=== PATIENT | female | born 1945 | race African-American/Black ===

== ENCOUNTER 2016-11-17 18:11 | Inpatient (IN) | payer MEDICARE ==
[~2016-11-17] VITALS: Ht 172.7 cm; Wt 100.2 kg
[2016-11-17] MEDS ORDERED: ONDANSETRON HCL 4MG/2ML VIAL IV STA (19:07)
[2016-11-17] MEDS ORDERED: MORPHINE SULFATE 4 MG/ML CPJ (NOT FOR IM USE) IV STA (19:07)
[2016-11-17 19:51] LABS: BASOPHILS % 0.8 % (0.0-2.0); CHLORIDE 107 mEq/L (98-107); EOSINOPHILS % 5.2 % (0.0-5.0); HEMATOCRIT. 34.1 % (36.0-48.0); HEMOGLOBIN. 11.2 g/dL (12.0-16.0); LYMPHOCYTES % 26.3 % (20.0-50.0); MEAN CORPUSCULAR HEMOGLOBIN 27.5 pg (28.0-32.0); MEAN CORPUSCULAR VOLUME 83.4 fL (81.0-99.0); MEAN PLATELET VOLUME 9.7 fl (7.4-10.4); MONOCYTES % 9.4 % (2.0-8.0); NEUTROPHILS % 58.3 % (40.0-76.0); PLATELET 100 x1000/uL (130-400); RED BLOOD CELL COUNT 4.08 mill/uL (4.2-5.4); RED CELL DISTRIBUTION WIDTH 14.7 % (11.6-14.6)
[2016-11-17 19:54] LABS: PARTIAL THROMBOPLASTIN TIME 26.6 sec (23.4-31.0); PROTHROMBIN TIME 10.5 sec (9.4-11.6)
[2016-11-17 19:55] LABS: CARBON DIOXIDE 26 mEq/L (21-32)
[2016-11-17 20:00] LABS: TROPONIN I < 0.02 ng/mL (0.00-0.04)
[2016-11-17 20:04] LABS: D-DIMER > 35.20 mg/L FEU (<0.50)
[2016-11-17] MEDS ORDERED: ENOXAPARIN 100MG/ML SYR SUBCUT ONE (21:30)
[2016-11-17] MEDS ORDERED: ENOXAPARIN 100MG/ML SYR SUBCUT NR (22:15)
[2016-11-18] VITALS (8 sets, daily range): BP systolic 107–129; BP diastolic 43–79
[2016-11-18] MEDS ORDERED: LOSA25TA12 PO (00:18)
[2016-11-18] MEDS ORDERED: GLIP10TA10 PO (00:18)
[2016-11-18] MEDS ORDERED: GABA-529 PO (00:18)
[2016-11-18] MEDS ORDERED: MELO-106 PO (00:18)
[2016-11-18] MEDS ORDERED: SIMV20TA6 PO (00:18)
[2016-11-18] MEDS ORDERED: CLONIDINE 0.1MG TABLET PO PRN (05:15)
[2016-11-18] MEDS ORDERED: DEXTROSE 50% WATER 50ML SYRINGE IV PRN (05:15)
[2016-11-18] MEDS ORDERED: ONDANSETRON HCL 4MG/2ML VIAL IV PRN (05:15)
[2016-11-18] MEDS ORDERED: ENOXAPARIN 100MG/ML SYR SUBCUT SCH (06:00)
[2016-11-18] MEDS: BLOOD SUGAR DIAGNOSTIC STRIP TEST SCH ×4 (06:21→20:16)
[2016-11-18] MEDS: INSULIN LISPRO 100 UNITS/ML SUBCUT SCH ×4 (07:50→20:17)
[2016-11-18] MEDS: GLIPIZIDE 10MG TABLET PO SCH ×2 (08:16→17:58)
[2016-11-18] MEDS: GABAPENTIN 100MG CAPSULE PO SCH ×2 (08:16→17:58)
[2016-11-18] MEDS: HYDROCODONE/ACETAMINOPHEN 5/325MG TABLET PO PRN ×2 (08:17→20:10)
[2016-11-18] MEDS ORDERED: LOSARTAN POTASSIUM 25 MG TABLET PO SCH (09:00)
[2016-11-18 09:23] LABS: BASOPHILS % 0.6 % (0.0-2.0); EOSINOPHILS % 7.4 % (0.0-5.0); HEMOGLOBIN. 11.2 g/dL (12.0-16.0); LYMPHOCYTES % 43.8 % (20.0-50.0); MEAN CORPUSCULAR HEMOGLOBIN 27.6 pg (28.0-32.0); MEAN CORPUSCULAR VOLUME 83.6 fL (81.0-99.0); MEAN PLATELET VOLUME 9.8 fl (7.4-10.4); MONOCYTES % 8.4 % (2.0-8.0); NEUTROPHILS % 39.8 % (40.0-76.0); PLATELET 118 x1000/uL (130-400); RED BLOOD CELL COUNT 4.07 mill/uL (4.2-5.4)
[2016-11-18 09:36] LABS: CARBON DIOXIDE 28 mEq/L (21-32); CHLORIDE 105 mEq/L (98-107)
[2016-11-18] MEDS: ENOXAPARIN 100MG/ML SYR SUBCUT SCH ×2 (12:14→21:16)
[2016-11-18] MEDS ORDERED: IPRATROPIUM/ALBUTEROL 0.5-3(2.5)MG/3ML NEB HHN PRN (15:00)
[2016-11-18] MEDS ORDERED: ATORVASTATIN CALCIUM 10MG TABLET PO SCH (21:00)
[2016-11-18] MEDS ORDERED: MEDICATION NOT ON FORMULARY EA (Simvastatin 1 TAB) PO SCH (21:00)
== END 2016-11-18 23:00 | disposition short-term general hospital (02) | DRG 300 ==
LOC: ER 21:19 → 6EST 22:48 → ENRESERV 22:55 → CANRESERV 22:55 → EDBEDREQ 22:56 → EDBEDREQTM 22:56 → ER 23:39
PROVIDERS: ADMIT Internal Medicine; ATTEND Internal Medicine
DX: I82.402 Acute embolism and thrombosis of unspecified deep veins of left lower extremity (principal); N17.9 Acute kidney failure, unspecified; E11.22 Type 2 diabetes mellitus with diabetic chronic kidney disease; E11.40 Type 2 diabetes mellitus with diabetic neuropathy, unspecified; D69.6 Thrombocytopenia, unspecified; E66.01 Morbid (severe) obesity due to excess calories; E11.9 Type 2 diabetes mellitus without complications; D64.9 Anemia, unspecified; I10 Essential (primary) hypertension; E78.00 Pure hypercholesterolemia, unspecified; E78.5 Hyperlipidemia, unspecified; I12.9 Hypertensive chronic kidney disease with stage 1 through stage 4 chronic kidney disease, or unspecified chronic kidney disease; N18.9 Chronic kidney disease, unspecified; Z86.711 Personal history of pulmonary embolism; Z88.0 Allergy status to penicillin; Z88.8 Allergy status to other drugs, medicaments and biological substances; Z90.49 Acquired absence of other specified parts of digestive tract; Z90.710 Acquired absence of both cervix and uterus; Z68.33 Body mass index [BMI] 33.0-33.9, adult; Z79.899 Other long term (current) drug therapy; Z98.49 Cataract extraction status, unspecified eye; Z79.01 Long term (current) use of anticoagulants
CPT/HCPCS: 36415; 71010; 78582; 80053; 82962; 83880; 84484; 85025; 85379; 85610; 85730; 86850; 86900; 93005; 93971; 96372; 96374; 96375; 99285; A9558; J1650; J1815; J2270; J2405

== ENCOUNTER 2018-01-27 14:20 | Inpatient (IN) | payer MEDICARE ==
[~2018-01-27] VITALS: Ht 170.2 cm; Wt 95.3 kg
[~2018-01-27 14:20] MED LIST: GABA-529 PO; GLIP10TA10 PO; LOSA25TA12 PO; MELO-106 PO; SIMV20TA6 PO
[2018-01-27] MEDS ORDERED: ASPIRIN 81MG TABLET PO ONE (15:00)
[2018-01-27] MEDS ORDERED: NITROGLYCERIN 0.4MG TABLET SL SL PRN (15:00)
[2018-01-27 16:49] LABS: BASOPHILS % 0.6 % (0.0-2.0); EOSINOPHILS % 0.9 % (0.0-5.0); HEMATOCRIT. 39.4 % (36.0-48.0); LYMPHOCYTES % 43.4 % (20.0-50.0); MEAN CORPUSCULAR HEMOGLOBIN 28.1 pg (28.0-32.0); MEAN CORPUSCULAR VOLUME 85.4 fL (81.0-99.0); MEAN PLATELET VOLUME 9.4 fl (7.4-10.4); MONOCYTES % 7.6 % (2.0-8.0); NEUTROPHILS % 47.5 % (40.0-76.0); PLATELET 219 x1000/uL (130-400); RED BLOOD CELL COUNT 4.62 mill/uL (4.2-5.4); RED CELL DISTRIBUTION WIDTH 14.3 % (11.6-14.6)
[2018-01-27 16:59] LABS: D-DIMER 0.4 mg/L FEU (<0.50); PROTHROMBIN TIME 10.5 sec (9.1-11.1)
[2018-01-27 17:00] LABS: CHLORIDE 107 mEq/L (98-107)
[2018-01-27] MEDS ORDERED: ENOXAPARIN 100MG/ML SYR SUBCUT ONE (17:30)
[2018-01-27] MEDS ORDERED: IOHEXOL-350 100 ML BOTTLE ONE (19:41)
[2018-01-27 21:30] VITALS: BP 133/70
[2018-01-27 21:58] VITALS: BP 133/70
[2018-01-27] MEDS ORDERED: TRAM50TA3 PO (23:11)
[2018-01-27] MEDS ORDERED: APIX5TAB PO (23:11)
[2018-01-28] VITALS: BP 118/64
[2018-01-28] MEDS ORDERED: HYDROCODONE/ACETAMINOPHEN 10/325MG TABLET PO PRN (00:15)
[2018-01-28] MEDS ORDERED: DEXTROSE 50% WATER 50ML SYRINGE IV PRN ×2 (00:15)
[2018-01-28 04:00] VITALS: BP 129/58
[2018-01-28 06:37] LABS: BASOPHILS % 0.6 % (0.0-2.0); EOSINOPHILS % 1.2 % (0.0-5.0); HEMATOCRIT. 38.9 % (36.0-48.0); HEMOGLOBIN. 12.9 g/dL (12.0-16.0); LYMPHOCYTES % 50.6 % (20.0-50.0); MEAN CORPUSCULAR HEMOGLOBIN 28.2 pg (28.0-32.0); MEAN PLATELET VOLUME 9.5 fl (7.4-10.4); MONOCYTES % 7.5 % (2.0-8.0); NEUTROPHILS % 40.1 % (40.0-76.0); PLATELET 218 x1000/uL (130-400); RED BLOOD CELL COUNT 4.57 mill/uL (4.2-5.4); RED CELL DISTRIBUTION WIDTH 14.4 % (11.6-14.6)
[2018-01-28] MEDS: BLOOD SUGAR DIAGNOSTIC STRIP TEST SCH ×3 (06:45→17:40)
[2018-01-28] MEDS: INSULIN LISPRO 100 UNITS/ML SUBCUT SCH ×3 (07:15→17:15)
[2018-01-28 08:00] VITALS: BP 137/59
[2018-01-28 08:10] LABS: CHLORIDE 108 mEq/L (98-107)
[2018-01-28 08:19] LABS: HDL CHOLESTEROL 104 mg/dL (40-59); LDL CHOLESTEROL 90 mg/dL (5-100)
[2018-01-28] MEDS ORDERED: LOSARTAN POTASSIUM 25 MG TABLET PO SCH (09:00)
[2018-01-28] MEDS ORDERED: MEDICATION NOT ON FORMULARY EA (Losartan Potassium 1 TAB) PO SCH (09:00)
[2018-01-28] MEDS ORDERED: GABAPENTIN 100MG CAPSULE PO SCH (09:00)
[2018-01-28] MEDS: APIXABAN 5 MG TABLET PO SCH ×2 (09:26→17:39)
[2018-01-28] MEDS: GLIPIZIDE 10MG TABLET PO SCH ×2 (09:26→17:39)
[2018-01-28 12:00] VITALS: BP 146/78
[2018-01-28 16:00] VITALS: BP 143/66
[2018-01-28 18:39] VITALS: BP 143/66
[2018-01-28] MEDS ORDERED: MEDICATION NOT ON FORMULARY EA (Simvastatin 1 TAB) PO SCH (21:00)
[2018-01-28] MEDS ORDERED: ATORVASTATIN CALCIUM 10MG TABLET PO SCH (21:00)
[2018-01-28] MEDS ORDERED: DILTIAZEM HCL 30MG TABLET PO SCH (22:00)
== END 2018-01-28 20:15 | disposition short-term general hospital (02) | DRG 74 ==
LOC: ER 14:20 → EDBEDREQ 15:05 → 5WST 19:18 → EDBEDREQTM 19:26 → EDBEDREQ 19:26 → ENRESERV 19:44 → 5WST 01-28 00:08
PROVIDERS: ADMIT Internal Medicine; ATTEND Internal Medicine
DX: G90.8 Other disorders of autonomic nervous system (principal); I82.412 Acute embolism and thrombosis of left femoral vein; I82.512 Chronic embolism and thrombosis of left femoral vein; E11.42 Type 2 diabetes mellitus with diabetic polyneuropathy; E78.00 Pure hypercholesterolemia, unspecified; E66.9 Obesity, unspecified; I12.9 Hypertensive chronic kidney disease with stage 1 through stage 4 chronic kidney disease, or unspecified chronic kidney disease; N18.9 Chronic kidney disease, unspecified; E11.22 Type 2 diabetes mellitus with diabetic chronic kidney disease; E78.5 Hyperlipidemia, unspecified; I49.3 Ventricular premature depolarization; Z88.0 Allergy status to penicillin; Z88.8 Allergy status to other drugs, medicaments and biological substances; Z79.01 Long term (current) use of anticoagulants; Z90.49 Acquired absence of other specified parts of digestive tract; Z90.710 Acquired absence of both cervix and uterus; Z79.899 Other long term (current) drug therapy; Z68.32 Body mass index [BMI] 32.0-32.9, adult
CPT/HCPCS: 36415; 71045; 71275; 80048; 80061; 82962; 83036; 83735; 83880; 84443; 84484; 85379; 86850; 86900; 93005; 93306; 93970; 96372; 97162; 99285; J1650; Q9967

== ENCOUNTER 2018-02-27 17:24 | Inpatient (IN) | payer MEDICARE ==
[~2018-02-27] VITALS: Ht 162.6 cm; Wt 93.0 kg
[~2018-02-27 17:24] MED LIST changes: +APIX5TAB PO; -MELO-106 PO; +TRAM50TA3 PO
[2018-02-27] MEDS ORDERED: WARF6TAB22 MT (17:40)
[2018-02-27] MEDS ORDERED: SODIUM CHLORIDE 0.9% 1,000 ML IV ONE (18:13)
[2018-02-27 19:55] LABS: BASOPHILS % 0.5 % (0.0-2.0); EOSINOPHILS % 1.4 % (0.0-5.0); HEMATOCRIT. 40.7 % (36.0-48.0); HEMOGLOBIN. 13.4 g/dL (12.0-16.0); LYMPHOCYTES % 45.3 % (20.0-50.0); MEAN CORPUSCULAR HEMOGLOBIN 28.2 pg (28.0-32.0); MEAN CORPUSCULAR VOLUME 85.8 fL (81.0-99.0); MEAN PLATELET VOLUME 10.5 fl (7.4-10.4); MONOCYTES % 7.8 % (2.0-8.0); PLATELET 206 x1000/uL (130-400); RED BLOOD CELL COUNT 4.74 mill/uL (4.2-5.4); RED CELL DISTRIBUTION WIDTH 14.7 % (11.6-14.6)
[2018-02-27 19:58] LABS: CHLORIDE 105 mEq/L (98-107)
[2018-02-27 20:05] LABS: INR 1.5; PARTIAL THROMBOPLASTIN TIME 32.2 sec (23.4-31.0); PROTHROMBIN TIME 14.7 sec (9.1-11.1)
[2018-02-27] MEDS ORDERED: ENOXAPARIN 100MG/ML SYR SUBCUT ONE (21:00)
[2018-02-27] MEDS ORDERED: ENOXAPARIN 100MG/ML SYR SUBCUT NR (21:00)
[2018-02-27] MEDS ORDERED: ASPIRIN 81MG TABLET PO ONE (21:30)
[2018-02-28] MEDS ORDERED: GUAIFENESIN 200MG/10ML SUGAR FREE UDC PO PRN (00:15)
[2018-02-28] MEDS ORDERED: IPRATROPIUM/ALBUTEROL 0.5-3(2.5)MG/3ML NEB INH PRN (00:15)
[2018-02-28] MEDS ORDERED: DOCUSATE SODIUM 100MG CAPSULE PO PRN (00:15)
[2018-02-28] MEDS ORDERED: ONDANSETRON HCL 4MG/2ML INJ IV PRN (00:15)
[2018-02-28] MEDS ORDERED: CLONIDINE 0.1MG TABLET PO PRN (00:15)
[2018-02-28 01:24] LABS: CHLORIDE 110 mEq/L (98-107)
[2018-02-28] MEDS ORDERED: METHYLPREDNISOLONE SOD SUCC 125 MG/2 ML VIAL IV SCH ×2 (06:30→09:00)
[2018-02-28 06:37] LABS: CREATINE KINASE 81 IU/L (26-192)
[2018-02-28 06:38] LABS: CREATINE KINASE MB FRACTION < 1.0 ng/mL (0.5-3.6)
[2018-02-28] MEDS ORDERED: DEXTROSE 50% WATER 50ML SYRINGE IV PRN (10:00)
[2018-02-28] MEDS: ENOXAPARIN 100MG/ML SYR SUBCUT SCH ×3 (10:12→22:55)
[2018-02-28 10:37] VITALS: BP 145/75
[2018-02-28 12:00] VITALS: BP 108/51
[2018-02-28] MEDS: BLOOD SUGAR DIAGNOSTIC STRIP TEST SCH ×3 (12:43→22:00)
[2018-02-28] MEDS ORDERED: INSULIN LISPRO 100 UNITS/ML SUBCUT SCH (12:50)
[2018-02-28] MEDS: INSULIN LISPRO 100 UNITS/ML SUBCUT SCH ×3 (13:31→22:00)
[2018-02-28 15:28] LABS: INR 1.5; PROTHROMBIN TIME 14.6 sec (9.1-11.1)
[2018-02-28 15:47] LABS: CREATINE KINASE 76 IU/L (26-192)
[2018-02-28 15:48] LABS: CREATINE KINASE MB FRACTION < 1.0 ng/mL (0.5-3.6)
[2018-02-28 16:00] VITALS: BP 122/53
[2018-02-28] MEDS ORDERED: WARFARIN SODIUM 7.5MG TABLET PO SCH (18:00)
[2018-02-28] MEDS: ACETAMINOPHEN 325MG TABLET PO PRN (19:09)
[2018-02-28 20:00] VITALS: BP 107/60
[2018-02-28 22:00] VITALS: BP 155/71
[2018-03-01] VITALS: BP 111/45
[2018-03-01] MEDS: ACETAMINOPHEN 325MG TABLET PO PRN ×3 (01:20→21:29)
[2018-03-01 02:00] VITALS: BP 100/55
[2018-03-01 04:00] VITALS: BP 159/51
[2018-03-01 06:20] LABS: BASOPHILS % 0.6 % (0.0-2.0); EOSINOPHILS % 2.8 % (0.0-5.0); HEMOGLOBIN. 12.2 g/dL (12.0-16.0); LYMPHOCYTES % 59.2 % (20.0-50.0); MEAN CORPUSCULAR HEMOGLOBIN 28.7 pg (28.0-32.0); MEAN CORPUSCULAR VOLUME 86.7 fL (81.0-99.0); MEAN PLATELET VOLUME 10.1 fl (7.4-10.4); MONOCYTES % 8.9 % (2.0-8.0); NEUTROPHILS % 28.5 % (40.0-76.0); PLATELET 174 x1000/uL (130-400); RED BLOOD CELL COUNT 4.26 mill/uL (4.2-5.4); RED CELL DISTRIBUTION WIDTH 14.4 % (11.6-14.6)
[2018-03-01 06:29] LABS: INR 1.3; PROTHROMBIN TIME 13.3 sec (9.1-11.1)
[2018-03-01 06:35] LABS: CHLORIDE 107 mEq/L (98-107)
[2018-03-01 06:42] LABS: LDL CHOLESTEROL 105 mg/dL (5-100)
[2018-03-01 06:44] LABS: HDL CHOLESTEROL 123 mg/dL (40-59)
[2018-03-01] MEDS: INSULIN LISPRO 100 UNITS/ML SUBCUT SCH ×4 (07:50→21:00)
[2018-03-01] MEDS: BLOOD SUGAR DIAGNOSTIC STRIP TEST SCH ×4 (07:51→21:00)
[2018-03-01] MEDS: ENOXAPARIN 100MG/ML SYR SUBCUT SCH ×3 (11:06→21:53)
[2018-03-01 12:00] VITALS: BP 138/70
[2018-03-01] MEDS: LOSARTAN POTASSIUM 25 MG TABLET PO SCH (16:11)
[2018-03-01 20:00] VITALS: BP 149/73
[2018-03-01] MEDS ORDERED: WARFARIN SODIUM 4MG TABLET PO NR (20:00)
[2018-03-01] MEDS: ATORVASTATIN CALCIUM 20MG TABLET PO SCH (21:30)
[2018-03-02] VITALS: BP_SYST 123; BP_SYST 149; BP_DIAS 50; BP_DIAS 73
[2018-03-02 04:00] VITALS: BP 111/56
[2018-03-02] MEDS: INSULIN LISPRO 100 UNITS/ML SUBCUT SCH ×4 (06:09→20:22)
[2018-03-02] MEDS: BLOOD SUGAR DIAGNOSTIC STRIP TEST SCH ×4 (06:09→20:22)
[2018-03-02 06:30] LABS: BASOPHILS % 0.6 % (0.0-2.0); HEMATOCRIT. 36.9 % (36.0-48.0); HEMOGLOBIN. 12.3 g/dL (12.0-16.0); LYMPHOCYTES % 56.3 % (20.0-50.0); MEAN CORPUSCULAR HEMOGLOBIN 28.8 pg (28.0-32.0); MEAN CORPUSCULAR VOLUME 86.4 fL (81.0-99.0); MEAN PLATELET VOLUME 10.5 fl (7.4-10.4); MONOCYTES % 9.4 % (2.0-8.0); NEUTROPHILS % 30.7 % (40.0-76.0); PLATELET 175 x1000/uL (130-400); RED BLOOD CELL COUNT 4.27 mill/uL (4.2-5.4); RED CELL DISTRIBUTION WIDTH 14.3 % (11.6-14.6)
[2018-03-02 07:10] LABS: INR 1.4; PROTHROMBIN TIME 13.7 sec (9.1-11.1)
[2018-03-02 07:53] LABS: CHLORIDE 107 mEq/L (98-107)
[2018-03-02 08:00] VITALS: BP 133/72
[2018-03-02] MEDS: LOSARTAN POTASSIUM 25 MG TABLET PO SCH (08:31)
[2018-03-02] MEDS ORDERED: APIX5TAB MT (11:50)
[2018-03-02 12:10] VITALS: BP 140/71
[2018-03-02] MEDS ORDERED: APIXABAN 5 MG TABLET PO SCH (12:30)
[2018-03-02] MEDS: ACETAMINOPHEN 325MG TABLET PO PRN ×2 (13:38→20:21)
[2018-03-02 16:00] VITALS: BP 122/81
[2018-03-02] MEDS ORDERED: WARFARIN SODIUM 3MG TABLET PO SCH (19:00)
[2018-03-02] MEDS: ENOXAPARIN 100MG/ML SYR SUBCUT SCH (19:17)
[2018-03-02 19:54] VITALS: BP 114/66
[2018-03-02] MEDS: ATORVASTATIN CALCIUM 20MG TABLET PO SCH (20:21)
[2018-03-02] MEDS ORDERED: ENOXAPARIN 100MG/ML SYR SUBCUT SCH (21:00)
[2018-03-03] VITALS: BP 123/52
[2018-03-03 03:58] VITALS: BP 124/58
[2018-03-03] MEDS: ENOXAPARIN 100MG/ML SYR SUBCUT SCH ×2 (06:14→17:57)
[2018-03-03] MEDS: BLOOD SUGAR DIAGNOSTIC STRIP TEST SCH ×4 (06:26→20:22)
[2018-03-03 06:56] LABS: INR 1.4; PROTHROMBIN TIME 14.4 sec (9.1-11.1)
[2018-03-03 07:12] LABS: BASOPHILS % 0.5 % (0.0-2.0); EOSINOPHILS % 3.5 % (0.0-5.0); HEMATOCRIT. 36.9 % (36.0-48.0); HEMOGLOBIN. 12.4 g/dL (12.0-16.0); LYMPHOCYTES % 52.3 % (20.0-50.0); MEAN CORPUSCULAR HEMOGLOBIN 28.9 pg (28.0-32.0); MEAN PLATELET VOLUME 9.9 fl (7.4-10.4); MONOCYTES % 8.3 % (2.0-8.0); NEUTROPHILS % 35.4 % (40.0-76.0); PLATELET 174 x1000/uL (130-400); RED CELL DISTRIBUTION WIDTH 14.6 % (11.6-14.6)
[2018-03-03 07:45] VITALS: BP 125/63
[2018-03-03] MEDS: INSULIN LISPRO 100 UNITS/ML SUBCUT SCH ×4 (07:50→20:18)
[2018-03-03] MEDS: LOSARTAN POTASSIUM 25 MG TABLET PO SCH (09:29)
[2018-03-03 12:00] VITALS: BP 112/62
[2018-03-03] MEDS: ACETAMINOPHEN 325MG TABLET PO PRN ×2 (13:51→20:17)
[2018-03-03] MEDS ORDERED: WARFARIN SODIUM 10MG TABLET PO SCH (18:00)
[2018-03-03 20:02] VITALS: BP 114/62
[2018-03-03] MEDS: ATORVASTATIN CALCIUM 20MG TABLET PO SCH (20:17)
[2018-03-03 20:36] VITALS: BP 114/62
== END 2018-03-03 22:10 | disposition short-term general hospital (02) | DRG 300 ==
LOC: ER 17:24 → 6WST 22:43 → EDBEDREQTM 22:53 → EDBEDREQ 22:53 → ENRESERV 02-28 07:06
PROVIDERS: ADMIT Internal Medicine; ATTEND Internal Medicine
DX: I82.412 Acute embolism and thrombosis of left femoral vein (principal); D68.9 Coagulation defect, unspecified; D68.59 Other primary thrombophilia; E11.40 Type 2 diabetes mellitus with diabetic neuropathy, unspecified; I10 Essential (primary) hypertension; E78.5 Hyperlipidemia, unspecified; E66.9 Obesity, unspecified; G90.8 Other disorders of autonomic nervous system; E78.00 Pure hypercholesterolemia, unspecified; E04.1 Nontoxic single thyroid nodule; T45.515A Adverse effect of anticoagulants, initial encounter; Y92.89 Other specified places as the place of occurrence of the external cause; Z86.711 Personal history of pulmonary embolism; Z86.718 Personal history of other venous thrombosis and embolism; Z87.891 Personal history of nicotine dependence; Z90.710 Acquired absence of both cervix and uterus; Z90.49 Acquired absence of other specified parts of digestive tract; Z68.35 Body mass index [BMI] 35.0-35.9, adult; Z88.8 Allergy status to other drugs, medicaments and biological substances; Z88.0 Allergy status to penicillin; Z79.899 Other long term (current) drug therapy; Z79.01 Long term (current) use of anticoagulants; Z91.19 Patient's noncompliance with other medical treatment and regimen
CPT/HCPCS: 36415; 71045; 71275; 80048; 80061; 82550; 82553; 82962; 83735; 84443; 84484; 85379; 93005; 93880; 93970; 96372; 97162; 99285; J1650; J1815; J2930; J7030

== ENCOUNTER 2018-06-28 19:17 | Inpatient (IN) | payer MEDICARE, OTHER ==
[~2018-06-28] VITALS: Ht 170.2 cm; Wt 93.9 kg
[~2018-06-28 19:17] MED LIST changes: +APIX5TAB MT; -APIX5TAB PO; -TRAM50TA3 PO
[2018-06-28 20:34] LABS: BASOPHILS % 0.8 % (0.0-2.0); EOSINOPHILS % 1.3 % (0.0-5.0); HEMATOCRIT. 38.6 % (36.0-48.0); HEMOGLOBIN. 13.1 g/dL (12.0-16.0); LYMPHOCYTES % 46.2 % (20.0-50.0); MEAN CORPUSCULAR HEMOGLOBIN 28.6 pg (28.0-32.0); MEAN CORPUSCULAR VOLUME 84.5 fL (81.0-99.0); NEUTROPHILS % 43.7 % (40.0-76.0); PLATELET 205 x1000/uL (130-400); RED BLOOD CELL COUNT 4.57 mill/uL (4.2-5.4); RED CELL DISTRIBUTION WIDTH 14.3 % (11.6-14.6)
[2018-06-28 20:37] LABS: CHLORIDE 104 mEq/L (98-107)
[2018-06-28 20:55] LABS: CLARITY URINE CLEAR (CLEAR); COLOR URINE YELLOW (YELLOW); KETONES URINE NEGATIVE (NEGATIVE); LEUKOCYTE ESTERASE URINE TRACE (NEGATIVE); NITRITE URINE NEGATIVE (NEGATIVE); OCCULT BLOOD URINE NEGATIVE (NEGATIVE); PH URINE 5.5 (4.5-8.0); PROTEIN URINE NEGATIVE (NEGATIVE); SPECIFIC GRAVITY URINE 1.013 (1.005-1.030); UROBILINOGEN URINE 0.2 E.U./dL (0.2-1.0)
[2018-06-28] MEDS ORDERED: SODIUM CHLORIDE 0.9% 1,000 ML IV ONE (23:15)
[2018-06-29 00:49] LABS: INR 2.4; PARTIAL THROMBOPLASTIN TIME 39.2 sec (23.4-31.0); PROTHROMBIN TIME 24.3 sec (9.6-11.0)
[2018-06-29] MEDS ORDERED: DIPHENHYDRAMINE 50MG/ML VIAL IV PRN (09:00)
[2018-06-29] MEDS ORDERED: ONDANSETRON HCL 4MG/2ML INJ IV PRN (09:00)
[2018-06-29] MEDS ORDERED: DOCUSATE SODIUM 100MG CAPSULE PO PRN (09:00)
[2018-06-29] MEDS ORDERED: MAGNESIUM/ALUMINUM HYDROXIDE/SIMETHICONE 30ML UDC PO PRN (09:00)
[2018-06-29] MEDS ORDERED: CLONIDINE 0.1MG TABLET PO PRN (09:00)
[2018-06-29] MEDS ORDERED: GUAIFENESIN 200MG/10ML SUGAR FREE UDC PO PRN (09:00)
[2018-06-29] MEDS ORDERED: IPRATROPIUM/ALBUTEROL 0.5-3(2.5)MG/3ML NEB INH PRN (09:00)
[2018-06-29] MEDS ORDERED: ACETAMINOPHEN 325MG TABLET PO PRN (09:00)
[2018-06-29 09:32] VITALS: BP 150/59
[2018-06-29] MEDS ORDERED: WARF6TAB22 PO (10:14)
[2018-06-29 12:00] VITALS: BP 131/61
[2018-06-29 12:44] LABS: PHOSPHORUS 2.4 mg/dL (2.5-4.9)
[2018-06-29 16:00] VITALS: BP 161/67
[2018-06-29] MEDS: LOSARTAN POTASSIUM 25 MG TABLET PO SCH (17:42)
[2018-06-29] MEDS: GABAPENTIN 100MG CAPSULE PO SCH (17:43)
[2018-06-29] MEDS: WARFARIN SODIUM 4MG TABLET PO SCH (17:44)
[2018-06-29] MEDS: HYDROCODONE/ACETAMINOPHEN 5/325MG TABLET PO PRN (17:47)
[2018-06-29 20:00] VITALS: BP 148/89
[2018-06-29] MEDS: ATORVASTATIN CALCIUM 20MG TABLET PO SCH (21:56)
[2018-06-30] VITALS: BP 116/61
[2018-06-30 04:00] VITALS: BP 122/68
[2018-06-30 06:43] LABS: INR 1.9; PROTHROMBIN TIME 18.5 sec (9.6-11.0)
[2018-06-30 06:46] LABS: BASOPHILS % 0.8 % (0.0-2.0); EOSINOPHILS % 2.1 % (0.0-5.0); HEMATOCRIT. 39.2 % (36.0-48.0); HEMOGLOBIN. 12.9 g/dL (12.0-16.0); LYMPHOCYTES % 54.5 % (20.0-50.0); MEAN CORPUSCULAR HEMOGLOBIN 27.9 pg (28.0-32.0); MEAN CORPUSCULAR VOLUME 84.7 fL (81.0-99.0); MEAN PLATELET VOLUME 9.4 fl (7.4-10.4); MONOCYTES % 7.9 % (2.0-8.0); NEUTROPHILS % 34.7 % (40.0-76.0); PLATELET 193 x1000/uL (130-400); RED BLOOD CELL COUNT 4.63 mill/uL (4.2-5.4); RED CELL DISTRIBUTION WIDTH 14.4 % (11.6-14.6)
[2018-06-30 07:02] LABS: CHLORIDE 107 mEq/L (98-107)
[2018-06-30 07:21] LABS: LDL CHOLESTEROL 106 mg/dL (5-100)
[2018-06-30 07:23] LABS: HDL CHOLESTEROL 117 mg/dL (40-59)
[2018-06-30 08:00] VITALS: BP 110/59
[2018-06-30] MEDS: LOSARTAN POTASSIUM 25 MG TABLET PO SCH (09:01)
[2018-06-30] MEDS: GABAPENTIN 100MG CAPSULE PO SCH ×2 (09:02→17:22)
[2018-06-30] MEDS: GLIPIZIDE 10MG TABLET PO SCH ×2 (09:02→17:22)
[2018-06-30 12:00] VITALS: BP 119/66
[2018-06-30] MEDS ORDERED: ACET-2708 MT (14:13)
[2018-06-30 16:00] VITALS: BP 118/60
[2018-06-30] MEDS: HYDROCODONE/ACETAMINOPHEN 5/325MG TABLET PO PRN (16:28)
[2018-06-30] MEDS: WARFARIN SODIUM 4MG TABLET PO SCH (17:23)
[2018-06-30 19:55] VITALS: BP 99/47
[2018-06-30] MEDS: ATORVASTATIN CALCIUM 20MG TABLET PO SCH (20:43)
== END 2018-06-30 21:08 | disposition short-term general hospital (02) | DRG 301 ==
LOC: ER 19:17 → 7WST 06-29 00:59 → ENRESERV 06-29 07:09
PROVIDERS: ADMIT Internal Medicine; ATTEND Internal Medicine
DX: I82.412 Acute embolism and thrombosis of left femoral vein (principal); E11.9 Type 2 diabetes mellitus without complications; E78.00 Pure hypercholesterolemia, unspecified; I10 Essential (primary) hypertension; Z90.710 Acquired absence of both cervix and uterus; Z90.49 Acquired absence of other specified parts of digestive tract; Z88.0 Allergy status to penicillin; Z88.8 Allergy status to other drugs, medicaments and biological substances; Z79.01 Long term (current) use of anticoagulants; Z79.899 Other long term (current) drug therapy
CPT/HCPCS: 36415; 71045; 78582; 80061; 82962; 83735; 83880; 84100; 84443; 84484; 93005; 93971; 96360; 99285; A9558; C1893; J7030

== ENCOUNTER 2020-07-07 03:18 | Emergency (ER) | payer MEDICARE, MEDICAID ==
[~2020-07-07] VITALS: Ht 170.2 cm; Wt 98.2 kg
[~2020-07-07 03:18] MED LIST changes: +ACET-2708 MT; -APIX5TAB MT; -LOSA25TA12 PO; +LOSA25TA26 PO; +SIMV-43 PO; -SIMV20TA6 PO; +WARF6TAB22 PO
[2020-07-07 05:35] LABS: BASOPHILS % 0.7 % (0.0-2.0); EOSINOPHILS % 2.5 % (0.0-5.0); HEMATOCRIT. 39.3 % (36.0-48.0); HEMOGLOBIN. 12.7 g/dL (12.0-16.0); LYMPHOCYTES % 36.8 % (20.0-50.0); MEAN CORPUSCULAR HEMOGLOBIN 27.7 pg (28.0-32.0); MEAN CORPUSCULAR VOLUME 85.6 fL (81.0-99.0); MEAN PLATELET VOLUME 9.7 fl (7.4-10.4); MONOCYTES % 9.5 % (2.0-8.0); NEUTROPHILS % 50.5 % (40.0-76.0); PLATELET 201 x1000/uL (130-400); RED BLOOD CELL COUNT 4.59 mill/uL (4.2-5.4); RED CELL DISTRIBUTION WIDTH 14.7 % (11.6-14.6)
[2020-07-07 05:40] LABS: CHLORIDE 107 mEq/L (98-107)
[2020-07-07 05:44] LABS: ETHANOL BLOOD < 10 mg/dL
[2020-07-07 05:58] LABS: CLARITY URINE CLEAR (CLEAR); COLOR URINE YELLOW (YELLOW); KETONES URINE NEGATIVE (NEGATIVE); LEUKOCYTE ESTERASE URINE TRACE (NEGATIVE); NITRITE URINE NEGATIVE (NEGATIVE); OCCULT BLOOD URINE NEGATIVE (NEGATIVE); PROTEIN URINE NEGATIVE (NEGATIVE); SPECIFIC GRAVITY URINE 1.011 (1.005-1.030); UROBILINOGEN URINE 0.2 E.U./dL (0.2-1.0)
[2020-07-07 06:09] LABS: *AMPHETAMINES SCREEN URINE NEGATIVE (NEGATIVE); *BARBITURATES SCREEN URINE NEGATIVE (NEGATIVE); *BENZODIAZEPINES SCREEN URINE NEGATIVE (NEGATIVE); *COCAINE SCREEN URINE NEGATIVE (NEGATIVE); METHADONE URINE SCREEN NEGATIVE (NEGATIVE); OPIATES URINE SCREEN NEGATIVE (NEGATIVE)
[2020-07-07 06:10] LABS: CANNABINOID URINE SCREEN NEGATIVE (NEGATIVE); PHENCYCLIDINE URINE SCREEN NEGATIVE (NEGATIVE)
[2020-07-07] MEDS ORDERED: IOHEXOL-350 100 ML BOTTLE ONE (07:17)
[2020-07-07 08:49] LABS: PARTIAL THROMBOPLASTIN TIME 24.2 sec (23.4-31.0); PROTHROMBIN TIME 10.9 sec (9.6-11.0)
[2020-07-07 09:45] VITALS: BP 111/55
[2020-07-07] MEDS ORDERED: IBUP-2028 MT (11:39)
[2020-07-07] MEDS ORDERED: TOPUD MT (11:39)
== END 2020-07-07 12:11 | disposition home or self-care (01) ==
LOC: ER 03:18
DX: H92.01 Otalgia, right ear (principal); R42 Dizziness and giddiness; E11.9 Type 2 diabetes mellitus without complications; I10 Essential (primary) hypertension; Z90.710 Acquired absence of both cervix and uterus; Z98.890 Other specified postprocedural states; Z79.899 Other long term (current) drug therapy
CPT/HCPCS: 36415; 70496; 70498; 80053; 80305; 80320; 81003; 83880; 84484; 85025; 85610; 85730; 93005; 99285; Q9967; G0480